=== PATIENT | female | born 1965 | race Hispanic/Latino ===

== ENCOUNTER → 2017-08-02 | Outpatient (CLI) | payer OTHER | LOC: MAMMO 09:23 | PROVIDERS: ATTEND Internal Medicine | DX: Z12.31 Encounter for screening mammogram for malignant neoplasm of breast (principal) | CPT/HCPCS: 77067 ==

== ENCOUNTER → 2018-07-18 | Outpatient (CLI) | payer OTHER ==
--- NOTE | 2018-07-18 17:33 | Diagnostic Imaging Report ---
EXAM: Cervical spine radiographs-6 views, thoracic spine radiographs-3 views INDICATION: Spondylopathy. COMPARISON: None FINDINGS: BONES: C1-C5 are visualized on the initial lateral radiograph. Subsequent swimmer view was obtained, demonstrating C6 and C7. The cervical alignment is unremarkable. There is an exaggerated thoracic kyphosis. No acute displaced fractures. Vertebral body heights are preserved. DISCS: No significant degenerative disc changes in the cervical spine. There are mild degenerative disc changes in the thoracic spine. JOINTS: The facet joints are unremarkable. SOFT TISSUES: Prevertebral soft tissues are unremarkable. OTHER: Nodular opacity projects over the left upper lung on frontal cervical spine radiograph. Status post cholecystectomy. IMPRESSION: No acute radiographic findings in the cervical or thoracic spine. Increased thoracic kyphosis. Mild degenerative disc changes in the thoracic spine. Nodular opacity projecting over the left upper lung could represent pulmonary vessel and overlying rib, however dedicated chest radiograph is recommended for further evaluation. Signed by: Dr. Pam Horner MD on 07/18/2018 5:29 PM
== END ==
LOC: MAMMO 15:15
PROVIDERS: ATTEND Internal Medicine
DX: Z12.31 Encounter for screening mammogram for malignant neoplasm of breast (principal); M46.92 Unspecified inflammatory spondylopathy, cervical region; M46.84 Other specified inflammatory spondylopathies, thoracic region
CPT/HCPCS: 72050; 72070; 77067

== ENCOUNTER → 2019-11-15 | Outpatient (CLI) | payer OTHER ==
--- NOTE | 2019-11-15 13:10 | Diagnostic Imaging Report ---
EXAM: US ABDOMEN COMPLETE DATE: 11/15/2019 12:17 PM INDICATION: Elevated liver enzymes COMPARISON: None TECHNIQUE: Transverse and longitudinal howe scale and color doppler sonographic images of the upper abdomen were obtained. FINDINGS: LIVER 14.7 cm in the right midclavicular line. Increased echogenicity of the liver with normal contour, no masses. SPLEEN 8.7 cm in maximum diameter. Normal echogenicity, no masses. GALLBLADDER Status post cholecystectomy. BILE DUCTS No intra nor extra-hepatic biliary dilation. Common bile duct measures 5mm PANCREAS: Visualized portions are normal. RIGHT KIDNEY: 10.2 cm Echogenicity: Normal Collecting System: No hydronephrosis Stones: None Cyst/Mass: None LEFT KIDNEY: 10.9 cm Echogenicity: Normal Collecting System: No hydronephrosis Stones: None Cyst/Mass: None VESSELS: Aorta: Visualized portions are within normal size limits Inferior Vena Cava: Visualized portions are normal Main Portal Vein: 0.9 cm, normal size with hepatopetal flow. FREE FLUID: None IMPRESSION: Hepatic steatosis. Otherwise, normal abdominal ultrasound. Signed by: Brian Mcleod MD on 11/15/2019 1:07 PM
== END ==
LOC: US 12:04
PROVIDERS: ATTEND Internal Medicine
DX: R74.8 Abnormal levels of other serum enzymes (principal)
CPT/HCPCS: 76700

== ENCOUNTER → 2019-12-18 | Outpatient (CLI) | payer OTHER ==
--- NOTE | 2019-12-20 08:21 | Diagnostic Imaging Report ---
#[id number] - [id number] #BILATERAL DIGITAL SCREENING MAMMOGRAM WITH CAD: 12/18/2019 CLINICAL: Routine screening. Comparison is made to exams dated: 07/18/2018 mammogram and 08/02/2017 mammogram - [facility]. Current study contains 5 films. There are scattered fibroglandular elements in both breasts. Current study was also evaluated with a Computer Aided Detection (CAD) system. Benign appearing calcifications are noted bilaterally. No significant masses, calcifications, or other findings are seen in either breast. IMPRESSION: BENIGN There is no mammographic evidence of malignancy. A 1 year screening mammogram is recommended. The patient will be notified by letter of the results. KOBE VEGA M.D. ct/penrad:12/19/2019 16:11:15 Senior Corporate Accountant: Lois VIDAL(R)(M), [facility] letter sent: Normal Exam Mammogram BI-RADS: 2 Benign
== END ==
LOC: MAMMO 12:58
PROVIDERS: ATTEND Internal Medicine
DX: Z12.31 Encounter for screening mammogram for malignant neoplasm of breast (principal)
CPT/HCPCS: 77067

== ENCOUNTER → 2024-12-12 | Outpatient (REF) | payer BC | LOC: MAMMO 12:55 | PROVIDERS: ATTEND Internal Medicine | DX: Z12.31 Encounter for screening mammogram for malignant neoplasm of breast (principal); M85.88 Other specified disorders of bone density and structure, other site | CPT/HCPCS: 77067; 77080 ==